=== PATIENT | female | born 1945 | race Caucasian/White ===

== ENCOUNTER 2017-07-01 18:25 | Inpatient (IN) ==
[2017-07-01] MEDS ORDERED: ADENOSINE 6 MG/2 ML VIAL ONE ×2 (18:47→18:53)
[2017-07-01] MEDS ORDERED: ONDANSETRON 4 MG/2 ML VIAL ONE (18:47)
[2017-07-01] MEDS ORDERED: METOPROLOL TARTRATE 5 MG/5 ML VIAL IV ONE ×2 (18:53→18:56)
[2017-07-01] MEDS ORDERED: MIDAZOLAM 2 MG/2 ML VIAL ONE (18:58)
[2017-07-01] MEDS ORDERED: METOPROLOL TARTRATE 5 MG/5 ML VIAL IV STA (19:09)
[2017-07-01] MEDS ORDERED: LEVOFLOXACIN INJ 750 MG in PREMIX 1 EACH IV STA (19:09)
[2017-07-01] MEDS ORDERED: ONDANSETRON 4 MG/2 ML VIAL IV STA (19:09)
[2017-07-01] MEDS ORDERED: ADENOSINE 6 MG/2 ML VIAL IV STA (19:09)
[2017-07-01] MEDS ORDERED: methylPREDNISolone SOD SUC 125 MG/2 ML VIAL IV STA (19:09)
[2017-07-01] MEDS ORDERED: LEVOFLOXACIN INJ 150 ML IV ONE (19:30)
[2017-07-01] MEDS ORDERED: methylPREDNISolone SOD SUC 125 MG/2 ML VIAL ONE (19:30)
[2017-07-01 19:56] LABS: Basophils % 0.2 % (0.0-0.8); Hematocrit 48.3 VOL% (35.7-47.0); Hemoglobin 15.3 GM/DL (12.0-16.0); Immature Granulocytes % 0.6 %; Immature Granulocytes Absolute 0.04 #; Lymphocytes # 0.6 10*3/uL (1.4-4.0); Lymphocytes % 8.5 % (21.3-54.2); Mean Corpuscular HGB Conc 31.7 GM/DL (32-36); Mean Corpuscular Hemoglobin 32 PG (27-34); Mean Corpuscular Volume 99.6 FL (87-102); Mean Platelet Volume 9.5 FL (9.6-12.0); Monocytes # 0.2 10*3/uL (0.11-0.8); Monocytes % 3.5 % (1.7-12.7); Neutrophils # 5.7 10*3/uL (1.4-7.4); Neutrophils % 87.2 % (38.7-73.9); Platelet Count 237 T/CUMM (130-400); Red Blood Count 4.85 MC/CUMM (3.8-5.5); Red Cell Distribution Width 13.1 % (9.3-17.3); White Blood Count 6.5 T/CUMM (4-12)
[2017-07-01 20:06] LABS: PT Patient Result 10.8 SECS
[2017-07-01 20:16] LABS: Alanine Aminotransferase 58 U/L (13-56); Alkaline Phosphatase 78 U/L (45-117); Aspartate Amino Transferase 83 U/L (0-37); Blood Urea Nitrogen 26 MG/DL (7-18); Calcium 7.4 MG/DL (8.5-10.1); Glucose 120 MG/DL (74-106); Potassium 4.1 MMOL/L (3.5-5.1); Sodium 143 MMOL/L (136-145); Total Protein 5.2 G/DL (6.4-8.3); Troponin I Only 0.199 NG/ML (0.00-0.045)
[2017-07-01 20:20] LABS: Partial Thromboplastin Time 50.4 SECS (0-40)
[2017-07-01] MEDS ORDERED: ONDANSETRON 4 MG/2 ML VIAL IV PRN (22:22)
[2017-07-01] MEDS ORDERED: MORPHINE 2 MG/1 ML SYRINGE IV PRN (22:22)
[2017-07-01] MEDS ORDERED: SODIUM CHLORIDE 0.9% 1,000 ML IV SCH (22:30)
[2017-07-01] MEDS ORDERED: ENOXAPARIN 40 MG/0.4 ML SYRINGE SUBCUT SCH (23:30)
[2017-07-01 23:55] LABS: Apearance,Urine CLOUDY (Clear); Bacteria,Urine Occasional /HPF (Few); Bilirubin,Urine Negative (Negative); Blood, Urine Moderate mg/dL (Negative); Glucose,Urine (UA) Negative (Negative); Granular Casts,Urine 10 /LPF (0-1); Ketones,Urine 5 mg/dL (Negative); Mucus,Urine Occasional /LPF (Occasional); Nitrite,Urine Negative (Negative); Protein,Urine 30 MG/DL; RBC,Urine 36 /HPF (0-4); Squamous Epithelial Cell,Urine Occasional /HPF (0-10); Urine Color Yellow (Yellow); Urine Specific Gravity 1.014 (1.001-1.035); WBC,Urine 7 /HPF (0-6)
[2017-07-02] MEDS: LEVALBUTEROL 0.63 MG/3 ML NEB RESP TX SCH ×3 (01:38→12:17)
[2017-07-02] MEDS: IPRATROPIUM 500 MCG/2.5 ML NEB RESP TX SCH ×3 (01:38→12:17)
[2017-07-02 02:19] LABS: ABG Base Excess -0.2 MMOL/L (-2.5-2.5); ABG HCO3 23.7 MMOL/L (20-26); ABG PO2 50.7 MM HG (80-95); ABG TCO2 32.1 MMOL/L (23-27); Allen Test Positive; Pt O2 Delivery Device Venturi Mask
[2017-07-02 02:24] LABS: ABG PH 7.127 (7.35-7.45)
[2017-07-02 05:38] LABS: Basophils % 0.1 % (0.0-0.8); Hematocrit 52.1 VOL% (35.7-47.0); Hemoglobin 16.5 GM/DL (12.0-16.0); Immature Granulocytes % 0.6 %; Immature Granulocytes Absolute 0.05 #; Lymphocytes # 0.6 10*3/uL (1.4-4.0); Lymphocytes % 6.5 % (21.3-54.2); Mean Corpuscular HGB Conc 31.7 GM/DL (32-36); Mean Corpuscular Hemoglobin 31 PG (27-34); Mean Corpuscular Volume 98.9 FL (87-102); Mean Platelet Volume 9.4 FL (9.6-12.0); Monocytes # 0.2 10*3/uL (0.11-0.8); Monocytes % 2.4 % (1.7-12.7); Neutrophils # 8.1 10*3/uL (1.4-7.4); Neutrophils % 90.4 % (38.7-73.9); Platelet Count 254 T/CUMM (130-400); Red Blood Count 5.27 MC/CUMM (3.8-5.5); Red Cell Distribution Width 13.2 % (9.3-17.3); White Blood Count 8.9 T/CUMM (4-12)
[2017-07-02 06:04] LABS: Allen Test Positive; Pt O2 Delivery Device BIPAP
[2017-07-02 06:06] LABS: ABG Base Excess 1.6 MMOL/L (-2.5-2.5); ABG HCO3 25.8 MMOL/L (20-26); ABG Oxygen Saturation 99.3 % (95-100)
[2017-07-02 06:08] LABS: ABG PCO2 94.7 MM HG (35-48); ABG PH 7.184 (7.35-7.45)
[2017-07-02 06:12] LABS: Calcium 8.2 MG/DL (8.5-10.1); Magnesium 2.2 MG/DL (1.8-2.4); Potassium 4.6 MMOL/L (3.5-5.1); Risk Ratio 3.63; Thyroid Stimulating Hormone 2.04 uIU/ml (0.358-3.74); VLDL CHOLESTEROL 25.2 MG/DL
[2017-07-02] MEDS ORDERED: FUROSEMIDE 20 MG/2 ML VIAL IV ONE (09:00)
[2017-07-02] MEDS ORDERED: cefTRIAXone 1,000 MG in SYRINGE 1 EACH IV SCH (09:00)
[2017-07-02] MEDS ORDERED: CARVEDILOL 6.25 MG TABLET PO SCH (09:00)
[2017-07-02] MEDS: methylPREDNISolone SOD SUC 40 MG/1 ML VIAL IV SCH ×2 (09:18→17:01)
[2017-07-02] MEDS ORDERED: SKIN HEALING OINT (AQUAPHOR) 50 GM TUBE TOP PRN (11:25)
[2017-07-02] MEDS ORDERED: ENOXAPARIN 60 MG/0.6 ML SYRINGE SUBCUT SCH ×2 (12:00→21:00)
[2017-07-02 12:03] LABS: ABG Base Excess 1.1 MMOL/L (-2.5-2.5); ABG HCO3 25.1 MMOL/L (20-26); ABG Oxygen Saturation 87.1 % (95-100); ABG PO2 57.1 MM HG (80-95); ABG TCO2 30.8 MMOL/L (23-27); Allen Test Positive; Pt O2 Delivery Device BIPAP
[2017-07-02 12:06] LABS: ABG PH 7.179 (7.35-7.45)
[2017-07-02] MEDS: MORPHINE 2 MG/1 ML SYRINGE IV PRN ×3 (15:45→17:44)
[2017-07-02 17:23] VITALS: BP 97/46
[2017-07-02] MEDS ORDERED: LEVOFLOXACIN INJ 500 MG in PREMIX 1 EACH IV SCH (19:00)
[2017-07-02] MEDS ORDERED: FUROSEMIDE 20 MG/2 ML VIAL IV SCH (21:00)
[2017-07-04] MEDS ORDERED: INFLUENZA VIRUS VACCINE 0.5 ML SYRINGE IM ONE (07:00)
[2017-07-04] MEDS ORDERED: PNEUMOCOCCAL VACCINE (13 VALENT) 0.5 ML SYRINGE IM ONE (07:00)
== END 2017-07-02 18:15 | disposition expired | DRG 308 ==
LOC: N.ED 18:25 → N.EDINP 21:14 → N.ICU 23:13
PROVIDERS: ADMIT Internal Medicine Cardiovascular Disease; ATTEND Internal Medicine Cardiovascular Disease